=== PATIENT | male | born 1945 | race Two or more races ===

== ENCOUNTER 2024-06-28 19:29 | Emergency (ER) | payer OTHER ==
[~2024-06-28] VITALS: Ht 167.6 cm; Wt 68.0 kg
[2024-06-28] MEDS ORDERED: CEFAZOLIN SODIUM 1,000 MG VIAL IM ONE (20:00)
[2024-06-28] MEDS ORDERED: FAMOtidine 10 MG/ML (4ML VIAL) IV ONE (20:00)
[2024-06-28 20:29] VITALS: BP 104/52; O2SAT 100
[2024-06-28] MEDS ORDERED: LOSARTAN-HCTZ1 EAC2 (20:30)
[2024-06-28] MEDS ORDERED: HUMIRA PEN40 MG/0.2 (20:30)
[2024-06-28 21:15] LABS: HEMATOCRIT 37.3 % (39.0-48.0); HEMOGLOBIN 12.7 g/dL (13-16.00); MEAN CELL VOLUME 93.9 fL (80.0-100.00); MEAN CORPUSCULAR HGB CONC 34.1 g/dl (32.0-36.0); PLATELET COUNT 146 K/uL (150-450); RED BLOOD COUNT 3.97 M/uL (4.00-6.00); RED CELL DISTRIBUTION WIDTH 13.6 % (11.5-14.5)
[2024-06-28 21:41] LABS: ALBUMIN 3.2 gm/dL (3.4-5.0); BILIRUBIN TOTAL 0.72 mg/dL (0.3-1.2); CALCIUM 8.3 mg/dL (8.5-10.1); CREATININE SERUM 1.46 mg/dL (0.70-1.30); GFR 46.69; GLOBULINA 3.7 G/DL (2.4-3.5); POTASSIUM 3.99 mEq/L (3.5-5.1); TOTAL PROTEIN 6.9 gm/dL (6.4-8.2)
[2024-06-28 21:44] LABS: INR 1.05; PARTIAL THROMBOPLASTIN TIME 29.6 SECONDS (22.0-34.0); PROTHROMBIN TIME 11.4 SECONDS (9.0-11.5)
[2024-06-28 21:47] LABS: URINE APPEARANCE Clear; URINE BILIRRUBIN Negative (NEGATIVE); URINE BLOOD Negative; URINE COLOR Yellow; URINE GLUCOSE Negative (NEGATIVE); URINE KETONE Negative (NEGATIVE); URINE LEUKOCYTE Negative; URINE NITRATE Negative; URINE PROTEIN Negative (NEGATIVE); URINE UROBILINOGEN 0.2 E.U./dl
[2024-06-28 21:51] LABS: URINE BACTERIA 12.2 uL (0.0-1933); URINE EPITHELIAL CELLS 1.8 uL (0.0-38.8); URINE RBC 2.3 uL (0.0-20.8); URINE WBC 2.3 uL (0.0-23.2)
[2024-06-28 22:04] LABS: URINE CAST 0.29 uL (0.0-1.40)
[2024-06-28] MEDS ORDERED: TETANUS & DIPHTHERIA TOX,ADULT 0.5 ML VIAL IM ONE (22:15)
[2024-06-28] MEDS ORDERED: LIDOCAINE HCL 1% 10ML VIAL PERCUT ONE (22:15)
[2024-06-29] MEDS ORDERED: CIPRO500 MG PO (00:04)
[2024-06-29] MEDS ORDERED: PEPCID AC20 MG PO (00:04)
== END 2024-06-29 00:13 | disposition home or self-care (01) ==
LOC: ER 19:29
PROVIDERS: General Practice
DX: S01.81XA Laceration without foreign body of other part of head, initial encounter (principal); W17.89XA Other fall from one level to another, initial encounter; Y93.89 Activity, other specified; Y92.018 Other place in single-family (private) house as the place of occurrence of the external cause; Y99.9 Unspecified external cause status; Z88.0 Allergy status to penicillin; I10 Essential (primary) hypertension; I51.9 Heart disease, unspecified
CPT/HCPCS: 12016; 36415; 70450; 71045; 72125; 73521; 90471; 90714; 96365; 99285; J0690; J1670; J3490

== ENCOUNTER → 2024-07-08 | Emergency (ER) | payer OTHER ==
[~2024-07-08] VITALS: Ht 175.3 cm; Wt 79.4 kg
[~2024-07-08] MED LIST: CIPRO500 MG PO; HUMIRA PEN40 MG/0.2; LOSARTAN-HCTZ1 EAC2; PEPCID AC20 MG PO
== END | disposition home or self-care (01) ==
LOC: ER 09:34
DX: Z48.02 Encounter for removal of sutures (principal); Z88.0 Allergy status to penicillin